=== PATIENT | female | born 1990 | race Hispanic/Latino ===

== ENCOUNTER 2023-10-18 08:13 | Outpatient (CLI) | payer OTHER, SELFPAY ==
[2023-10-18] VITALS (13 sets, daily range): BP systolic 108–135; BP diastolic 67–91; PULSE 60–82; RESP 12–16; TEMP 36.2–36.7; O2SAT 96–100; BMI 44.6
--- NOTE | 2023-10-18 | DI.RAD.S_ITS ---
PROCEDURE: XR CHEST 1V INDICATIONS: POST LUNG BX FOR PNEUMO TECHNIQUE: One view of the chest was acquired. COMPARISON: None. FINDINGS: Surgical changes and devices: There is a right Port-A-Cath, the tip of which is in the lower SVC. Lungs and pleura: Right basilar and right mid lung mass are redemonstrated and similar to the recent CT of the chest. No new airspace opacities. No pleural effusions or pneumothorax. Mediastinum: Mediastinal contours appear normal. Heart size is normal. Bones and chest wall: No suspicious bony lesions. Overlying soft tissues appear unremarkable. IMPRESSION: No pneumothorax after CT-guided lung biopsy. No pleural effusion or new airspace opacities. Dictated by: Amaya Alan M.D. on 10/18/2023 at 10:36 Approved by: Amaya Alan M.D. on 10/18/2023 at 10:37
--- NOTE | 2023-10-18 | DI.CT.S_ITS ---
PROCEDURE: CT BIOPSY LUNG RT Sedation analgesia for 30 minutes. INDICATIONS: lung mass TECHNIQUE: The indications, alternatives, benefits, risks, and possible complications of the procedure were communicated to the patient. Informed written consent from the patient was obtained and placed in the chart. Continuous EKG and hemodynamic monitoring was started by trained personnel. The patient was brought to the CT suite and finishing lab technician spiral CT imaging was performed with localization grid. The appropriate site for percutaneous access to the biopsy target was marked, was prepped and draped sterilely, and was infused with local anaesthesia. Under CT guidance, a core biopsy trocar and needle set was advanced to the biopsy target, and specimen(s) were obtained. The trocar and needle were then removed, and the patient was sent for post-procedure monitoring. COMPARISON: None. FINDINGS: Biopsy site: Right lower lobe Needle: 20 gauge biopsy needle with introducer trocar. Number of passes: 5 Medications: 1% lidocaine for local anaesthesia. IV Fentanyl and Versed for conscious sedation for 30 minutes (see nursing record). Complications: None. IMPRESSION: Successful CT-guided biopsy of a right lower lobe mass. Dictated by: Amaya Alan M.D. on 10/18/2023 at 11:58 Approved by: Amaya Alan M.D. on 10/18/2023 at 11:58
[2023-10-18 08:57] LABS: Prothrombin Time 11.1 SECONDS (9.4-12.5)
[2023-10-18 09:00] LABS: PTT Partial Thromboplastin Tim 29 SECONDS (25.1-36.5)
[2023-10-18 09:37] LABS: Hematocrit 42.3 % (36-46); Platelet Count 273 X10^3/uL (150-400)
[2023-10-18] MEDS: fentaNYL 100 MCG/2 ML INJ IV (10:13)
[2023-10-18] MEDS: MIDAZOLAM 2 MG/2 ML VIAL IV (10:13)
--- NOTE | 2023-10-18 11:30 | DI.RAD.S_ITS ---
PROCEDURE: XR CHEST 1V INDICATIONS: 1 HOUR POST BX FOR PNEUMO TECHNIQUE: One view of the chest was acquired. COMPARISON: [facility], , XR CHEST 1V, 10/18/2023, 10:27. FINDINGS: Surgical changes and devices: None. Lungs and pleura: There may be a trace basilar pneumothorax visualized at the medial right lung base. No other findings to suggest pneumothorax. No pleural effusion. Mediastinum: Mediastinal contours appear normal. Heart size is normal. Bones and chest wall: No suspicious bony lesions. Overlying soft tissues appear unremarkable. IMPRESSION: Questionable small medial basilar right pneumothorax. Dictated by: Amaya Alan M.D. on 10/18/2023 at 11:42 Approved by: Amaya Alan M.D. on 10/18/2023 at 11:43
--- NOTE | 2023-10-18 13:30 | DI.RAD.S_ITS ---
PROCEDURE: XR CHEST 1V INDICATIONS: POST BIOPSY MAYBE PEUMO TECHNIQUE: One view of the chest was acquired. COMPARISON: [facility], , XR CHEST 1V, 10/18/2023, 11:27. FINDINGS: Surgical changes and devices: None. Lungs and pleura: No interval change from prior studies. There may be a trace pneumothorax at the medial right lung base; however no findings to suggest retraction of the lung or propagation of pneumothorax. No pleural effusion. Mediastinum: Mediastinal contours appear normal. Heart size is normal. Bones and chest wall: No suspicious bony lesions. Overlying soft tissues appear unremarkable. IMPRESSION: Stable post biopsy chest film. Dictated by: Amaya Alan M.D. on 10/18/2023 at 13:39 Approved by: Amaya Alan M.D. on 10/18/2023 at 13:40
== END 2023-10-18 14:35 | disposition home or self-care (01) ==
PROVIDERS: Radiology Vascular & Interventional Radiology; Referring Provider Internal Medicine Hematology & Oncology; Visit Provider Internal Medicine Hematology & Oncology
PROC: BB24ZZZ Computerized Tomography (CT Scan) of Bilateral Lungs (ICD-10-PCS; CPT 32408; principal; 2023-10-18 09:00)
DX: R91.8 Other nonspecific abnormal finding of lung field (principal)
CPT/HCPCS: 32408; 36415; 71045; 85014; 85049; 85610; 85730; J2250; J3010

== ENCOUNTER → 2023-12-01 11:41 | Outpatient (CLI) | payer OTHER, SELFPAY | LOC: RESP 11:42 | PROVIDERS: PCP Student in an Organized Health Care Education/Training Program; Referring Provider Internal Medicine Hematology & Oncology; Visit Provider Internal Medicine Hematology & Oncology | DX: C78.00 Secondary malignant neoplasm of unspecified lung (principal); Z87.891 Personal history of nicotine dependence; Z86.16 Personal history of COVID-19 | CPT/HCPCS: 94060; 94726; 94729 ==

== ENCOUNTER → 2024-02-26 09:48 | Outpatient (CLI) | payer OTHER, SELFPAY ==
--- NOTE | 2024-02-26 09:50 | DI.CT.S_ITS ---
PROCEDURE: CT CHEST W CON INDICATIONS: MALIGNANT NEOPLASM METASTATIC RT LUNG TECHNIQUE: After the administration of intravenous contrast, 5 mm thick sections acquired from the pulmonary apices to the posterior costophrenic angles. 1 mm axial lung, 5 mm thick coronal and sagittal reformats and 7 mm axial MIP were acquired. For radiation dose reduction, the following was used: automated exposure control, adjustment of mA and/or kV according to patient size. COMPARISON: [facility], RG, CT THORAX WITH CONTRAST, 07/11/2023, 11:12. [facility], CT, CT CHEST W CON, 07/11/2023, 11:12. FINDINGS: Image quality: Diagnostic. Lower Neck: No enlarged lymph nodes. Thyroid: No thyroid nodules which require sonographic follow up, per consensus guidelines. Axillae: No enlarged lymph nodes. Chest Wall: Right chest wall port tip terminates in the cavoatrial junction. Bones: Unremarkable. Lungs and Pleura: Right lower lobe mass measures 3.5 x 4.4 cm, previously 2.3 x 2.3 cm on 07/11/2023. There is now broad-based contact with the major fissure in the right chest wall. 1.4 cm right upper lobe nodule, previously 1.1 cm (series 3, image 122). Stable 0.5 cm left upper lobe subpleural nodule (series 3, image 91). Heart: Heart size is normal. No pericardial effusion. Thoracic Vessels: The aorta and pulmonary arteries demonstrate normal size. Mediastinum and Li: No enlarged lymph nodes. Esophagus: No wall thickening. No hiatal hernia. Upper Abdomen: Hepatic steatosis. IMPRESSION: Interval increase in size of the right lower lobe mass, now with contact along the pleura. Slight interval increase in size of the right upper lobe nodule, indeterminate in the setting of malignancy. No adenopathy. Hepatic steatosis. Dictated by: Gm Ortiz M.D. on 02/26/2024 at 13:13 Approved by: Gm Ortiz M.D. on 02/26/2024 at 13:20
== END ==
PROVIDERS: PCP Student in an Organized Health Care Education/Training Program; Referring Provider Surgery; Visit Provider Surgery
DX: C55 Malignant neoplasm of uterus, part unspecified (principal); C78.01 Secondary malignant neoplasm of right lung; K76.0 Fatty (change of) liver, not elsewhere classified
CPT/HCPCS: 71260; Q9967